=== PATIENT | male | born 1940 | race Caucasian/White ===

== ENCOUNTER 2019-10-16 08:23 | Day surgery (SDC) | payer MEDICARE, OTHER ==
[~2019-10-16 08:23] MED LIST: Sodium Chloride 0.9% 10 ML Syringe FLUSH PRN
[2019-10-16] MEDS ORDERED: fentaNYL 100 MCG/2 ML SDV ONE (09:03)
[2019-10-16] MEDS ORDERED: Lactated Ringers 1,000 ML IV SCH (09:03)
[2019-10-16] MEDS ORDERED: Propofol 200 MG/20 ML SDV ONE (09:03)
--- NOTE | 2019-10-16 12:03 | OR ---
PREOPERATIVE DIAGNOSIS: Diverticulitis. POSTOPERATIVE DIAGNOSIS: Extensive diverticulosis with colon polyp. PROCEDURE: Colonoscopy with forceps biopsy and forceps polypectomy. ANESTHESIA: MAC. ESTIMATED BLOOD LOSS: Nil. FINDINGS: Unusual mucosal architecture at 70 cm which was biopsied with forceps. There was small adenomatous colon polyp at 49 cm. Extensive dense diverticulosis from approximately 10 to 40 cm in the left colon. DETAILS OF PROCEDURE: After obtaining informed consent, the patient was brought to the operating room and was rolled onto the left side. Anesthesia was administered after performing a time-out. A digital rectal exam was performed which was normal. A lubricated colonoscope was advanced with some difficulty due to the dense diverticulosis. It was advanced to the cecum which was confirmed by the appendiceal orifice and the ileocecal valve. We then withdrew the colonoscope slowly and found an area of sessile mucosal changes which was biopsied. It did not appear to be a polyp. This was at 70 cm. This was biopsied with forceps. Then, at 49 cm, I did find a small adenomatous polyp which was removed with a biopsy forceps. From approximately 40 cm in the descending colon all the way to approximately 10 to 15 cm, there was dense multiloculated diverticulosis. There was no active diverticulosis. The colonoscope was then retroflexed and we did not note any significant internal hemorrhoids. The patient tolerated the procedure well. YAMILAM: 10/16/2019 11:44:22 MODL: 10/16/2019 12:00:30 /[id number]
== END 2019-10-16 12:30 | disposition home or self-care (01) ==
LOC: VM.SDS 08:23
PROVIDERS: ATTEND Surgery
DX: D12.5 Benign neoplasm of sigmoid colon (principal); K57.30 Diverticulosis of large intestine without perforation or abscess without bleeding; I10 Essential (primary) hypertension; I08.2 Rheumatic disorders of both aortic and tricuspid valves; I25.10 Atherosclerotic heart disease of native coronary artery without angina pectoris; I25.2 Old myocardial infarction; K21.9 Gastro-esophageal reflux disease without esophagitis; N40.0 Benign prostatic hyperplasia without lower urinary tract symptoms; E78.00 Pure hypercholesterolemia, unspecified; E66.3 Overweight; Z68.27 Body mass index [BMI] 27.0-27.9, adult; Z95.1 Presence of aortocoronary bypass graft; Z79.899 Other long term (current) drug therapy; Z86.010 Personal history of colon polyps
CPT/HCPCS: 00811; J2704; J3010; J7120